=== PATIENT | male | born 1985 | race Hispanic/Latino ===

== ENCOUNTER 2024-11-21 19:03 | Emergency (ER) | payer OTHER ==
[2024-11-21 21:04] LABS: BASOPHILS % 0.5 % (0.0-1.0); EOSINOPHILS % 1.7 % (0.0-6.0); LYMPHOCYTES % 17.5 % (18.0-39.1); MONOCYTES % 5.7 % (4.4-11.3); NEUTROPHILS % 74.3 % (38.7-80.0); RED CELL DISTRIBUTION WIDTH 13.3 % (11.7-14.4)
[2024-11-21 21:17] LABS: EST GLOMERULAR FILTRATION RATE 71.0 ML/MIN (>=60)
[2024-11-21 21:19] LABS: LEUKOCYTE ESTERASE ,URINE NEGATIVE (NEGATIVE); PROTEIN,URINE DIPSTICK NEGATIVE (NEGATIVE); URINE UROBILINOGEN 0.2 mg/dL (0.2 - 1)
[2024-11-21 21:38] LABS: WBC,URINE (MAN) 0-5 /HPF (0-5)
[2024-11-22] MEDS ORDERED: FLOMAX0.4 MG PO (00:12)
[2024-11-22] MEDS ORDERED: KETOROLAC TROME10 MG PO (00:12)
[2024-11-22] MEDS ORDERED: MACROBID 100 M100 MG PO (00:12)
[2024-11-22] MEDS ORDERED: ONDANSETRON ODT4 MG SL (00:12)
[2024-11-22] MEDS: KETOROLAC TROMETHAMINE 30 MG/ML VIAL IV STA (00:21)
[2024-11-22 00:22] VITALS: PULSE 77; RESP 18; TEMP 99.1
[2024-11-22] MEDS: ONDANSETRON HCL INJ 2MG/ML 2ML 2 MG/ML VIAL IV STA (00:22)
[2024-11-22 00:26] VITALS: BP 115/71; PULSE 77; RESP 18; TEMP 99.1; O2SAT 98
== END 2024-11-22 00:24 | disposition home or self-care (01) ==
LOC: ER 21:56
DX: R10.31 Right lower quadrant pain (principal); N20.2 Calculus of kidney with calculus of ureter; K57.90 Diverticulosis of intestine, part unspecified, without perforation or abscess without bleeding; F17.210 Nicotine dependence, cigarettes, uncomplicated
CPT/HCPCS: 36415; 74176; 80053; 81001; 83690; 85025; 99284; J1885; J2405